=== PATIENT | female | born 1945 | race Two or more races ===

== ENCOUNTER 2022-03-15 14:43 | Inpatient (IN) | payer MEDICARE, OTHER ==
[~2022-03-15] VITALS: Ht 162.6 cm; Wt 66.0 kg
[2022-03-15] MEDS ORDERED: ATOR10 PO (15:28)
[2022-03-15] MEDS ORDERED: METO50 PO (15:29)
[2022-03-15] MEDS ORDERED: FURO40 PO (15:29)
[2022-03-15] MEDS ORDERED: FURO20 PO (19:59)
[2022-03-15] MEDS ORDERED: ALBU90OI INH (20:05)
[2022-03-15] MEDS ORDERED: FLOVENT HFA12 GM INH (20:05)
--- NOTE | 2022-03-15 20:10 | NUR ---
SHIFT SUMMARY- PT ARRIVED ON MEDICAL FLOOR WITH PAPER ADMIT ORDERS AT 1845. ALL ORDERS ENTERED INTO THE COMPUTER, CALLLED DR NORMAN FOR CLARIFICATION ON SOME ORDERS ALL ORDERS PLACED THROUGHT ORDERMANAGEMENT. MEDICATIONS RECONCILED AFTER THE PT DAUGHTER PRODUCED PHOTOS OF SCRIPT LABELS. PT ALERT AND WITH NO S&S OF DISTRESS ON 2L O2 AT THE TIME OF SHIFT CHANGE. PT DAUGHTER STATES THE PT USES A CPAP MACHINE AT NIGHT HABITUALLY. NO ORDERS IN PLACE FOR THE CPAP NIGHT RN AWARE AND WILL CALL NIGHT MD FOR THOSE WELL TO CLARIFY CODE STATUS.
--- NOTE | 2022-03-16 00:50 | NUR ---
CARDIAC:PATIENT WAS ASSISTED TO THE BSC, SEEMED WEAKER THAN RONNY. WAS ALSO AGGITATED WITH THE CPAP AND SCD'S ON. BP WAS 179/105 HR 90, SOB WITH ACTIVITY RR 26, 02 SAT IS 100% ON 3L NC. DR FREEDMAN IS NOTIFIED AND ORDERS FOR HYDRALAZINE 10 MG PRN FOR SBP ABOVE 160. MED WAS NOT GIVEN DUE TO BP WAS 128/65 WHEN RECHECK FOR THRESHER BROOMCORN. WILL CONTINUE TO MONITOR.
[2022-03-16 03:50] LABS: BASOPHILS ABSOLUTE AUTO 0.02 K/mm3 (0.00-0.23); BASOPHILS PERCENT AUTO 0 % (0-2); EOSINOPHILS ABSOLUTE AUTO 0.01 K/mm3 (0.00-0.68); EOSINOPHILS PERCENT AUTO 0 % (0-6); Hematocrit 44.5 % (33.0-51.0); Hemoglobin 13.3 g/dL (11.5-16.0); IMMATURE GRAN ABSOLUTE AUTO 0.07 K/mm3 (0.00-0.10); IMMATURE GRAN PERCENT AUTO 1 % (0-1); LYMPHOCYTES ABSOLUTE AUTO 0.99 K/mm3 (0.84-5.20); LYMPHOCYTES PERCENT AUTO 17 % (21-46); MONOCYTES ABSOLUTE AUTO 0.64 K/mm3 (0.16-1.47); MONOCYTES PERCENT AUTO 11 % (4-13); Mean Corpuscular HGB 31.2 pg (26.0-34.0); Mean Corpuscular HGB Conc 29.9 g/dL (31.5-36.5); Mean Corpuscular Volume 105 fL (80-100); Mean Platelet Volume 10.8 fL (9.1-12.4); NEUTROPHILS ABSOLUTE AUTO 4.25 K/mm3 (1.96-9.15); NEUTROPHILS PERCENT AUTO 71 % (41-73); Platelet Count 185 K/mm3 (150-400); RDW Coefficient Variation 13.3 % (11.7-14.2); RDW Standard Deviation 51.5 fL (35.1-46.3); Red Blood Cell Count 4.26 M/mm3 (3.80-5.20); White Blood Cell Count 5.98 K/mm3 (4.00-11.30)
[2022-03-16 04:21] LABS: Albumin, Blood 3.4 g/dL (3.4-5.0); Albumin/Globulin Ratio 0.9 (0.8-1.8); Bun/Creatinine Ratio 31.3 (12.0-20.0); Calcium, Blood 8.8 mg/dL (8.5-10.1); Creatinine, Blood 0.67 mg/dL (0.40-1.00); Globulin, Blood 3.6 g/dL (2.2-4.0); Potassium, Blood 4.6 mmol/L (3.5-5.5); Thyroid Stimulating Hormone 0.9 uIU/mL (0.360-4.800)
--- NOTE | 2022-03-16 04:43 | NUR ---
SHIFT SUMMARY: PATIENT HAS BEEN SLEEPING WELL THIS SHIFT. DAUGHTER REMAINS AT BEDSIDE. PATIENT REFUSES TO USE AIR CONDITIONING SHEET METAL INSTALLER SERVICES. PATIENT IS ABLE TO SPEAK SOME NIGERIAN BUT COLD ROLLING MACHINE SETTER IS UNABLE TO ASSESS PATIENTS UNDERSTANDING. BP HAS REMAINED STABLE. PATIENT WAS UNABLE TO TOLERATE HOSPITAL CPAP MASK, REFUSAL FOR CPAP WAS OBTAINED. PATIENT RENAINS ON 3L VIA NC AND CONTINUOS PULSE OX. DAUGHTER REFUSES BED ALARM. COLD ROLLING MACHINE SETTER ENCOURAGES DAUGHTER TO RECONSIDER AND GET SOME SLEEP HERSELF.
[2022-03-16 09:48] LABS: PO2 Arterial 88.1 mmHg (80-100)
[2022-03-16 09:49] LABS: pH Blood Arterial 7.11 (7.35-7.45)
[2022-03-16 10:06] LABS: PCO2 Arterial > 105 mmHg (35-45)
--- NOTE | 2022-03-16 10:54 | NUR ---
Upon responding to a Rapid Response, I provide a calming presence for dtr. Ines. She tells me that she is very nervous for her mother and does not understand what is happening. She has her sister in [place] on facetime while we talk. I explain about the transfer to ICU and why it is important. I distract Ines with questions about her life, her lalo and learning about the patient's life. I provide therapeutic listening, gentle counseling specialist, anxiety containment and prayer. Ines responds well and shows signs of increase peace. I will continue to remain available to patient and family.
--- NOTE | 2022-03-16 11:08 | NUR ---
TRANSFER TO ICU PT TRANSFERED TO ICU 15 PCU STATUS AT 1000. PT ARRIVED ON BIPAP 16/ WITH 6L O2 BLEED IN. PT TRANSFER TO ICU BED. PT IS OBTUNDED AND MINIMALLY RESPONSIVE TO NOXIOUS STIMULI. VITAL SIGNS STABLE. IV SALINE LOCKED. PT DAUGHTER AT BEDSIDE. WILL CONTINUE TO MONITOR.
[2022-03-16 12:16] LABS: PCO2 Arterial > 105 mmHg (35-45); PO2 Arterial 72.3 mmHg (80-100)
--- NOTE | 2022-03-16 13:18 | NUR ---
FAMILY PT DAUGHTER AT BEDSIDE WITH PT. CT SCAN ORDERED, THIS RN IN TO INFORM PT DAUGHTER OF PLAN OF CARE. PT DAUGHTER APPEARS ANXIOUS AND IS EXPLAINING THAT SHE DOES NOT BELIEVE A CT SCAN IS NECESSARY. PT REMAINS OBTUNDED WITH PCO2 >105. PT DAUGHTER REFUSES TO USE AN COMPUTER METHODS ANALYST SERVICE PROVIDED. THIS RN EXPLAINED IN GREAT DETAIL PT CONDITION AND PLAN OF CARE WITH NEED FOR CT SCAN DUE TO PT WORSENING RESPIRATORY CONDITION THIS MORNING. GREG ALEXANDER AT BEDSIDE WITNESS TO CONVERSATION REGARDING PT PLAN OF CARE AND PT DAUGHTER REFUSAL OF INTERPERETER SERVICES.
[2022-03-16 16:44] LABS: PO2 Arterial 61.8 mmHg (80-100); pH Blood Arterial 7.22 (7.35-7.45)
[2022-03-16 16:50] LABS: PCO2 Arterial > 105 mmHg (35-45)
--- NOTE | 2022-03-16 17:24 | NUR ---
SHIFT SUMMARY: PT SLEPT ON AND OFF A MAJORITY OF THE DAY. A&OX3. FORGETFUL AT TIMES. PT ON RA SATING ABOVE 95%. HR SINUS RHYTHYM 80-90. HEPARING INFUSING AT 16UNITS/KG/HR. PT HAD NO COMPLAINTS OF CHEST PAIN OR SOB THROUGHOUT THE DAY. PT HAVING BROWM LIQUID STOOL. CONT OF URINE. REPOS IND IN BED. CALL LIGHT IN REACH. WILL CONTINUE TO MONITOR AND REPORT TO LISA GARZA.
--- NOTE | 2022-03-16 18:05 | NUR ---
SHIFT SUMMARY: PT MINIMALLY RESPONSIVE TO NOXIOUS STIMULI. LUNG SOUNDS DIMINISHED THROUGHOUT. PT HAD CT THIS EVENING WHICH WAS NEGATIVE FOR PE. DR STYLES IN THIS EVENING TO SEE PT. ADJUSTED BIPAP SETTINGS TO 22/10 WITH 3L BLEED IN. SATING ABOVE 90%. HR SINUS RHYTHYM 75-85. PT INC OF BOTH URINE AND BOWEL. DAUGHTER WAS AT BEDISDE THROUGHOUT SHIFT AND UPDATED FREQUENTLY OF PT CARE. REPOS Q2. WILL CONTINUE TO MONITOR AND REPORT TO ONCOMING RN.
--- NOTE | 2022-03-16 20:30 | NUR ---
ASSUMED CARE @1900 PATIENT IS ALERT AND ORIENTED AND AT BASELINE ACCORDING TO THE DUAGHTER. SOME DIFFICULTY FOLLOWING COMMANDS, POSSIBLE LANGUAGE BARRIER. TRIED GIVING PATIENT A SIP OF WATER AND SHE HELD IT IN HER MOUTH, HELD PO MEDICATION DUE TO POSSIBLE ASPIRATION RISK. 02 SATS 98% ON BIPAP 22/10, 4L 02. LEFT LS ABSENT, RIGHT LS CLEAR IN UPPER LOBE, DIMISHED IN BASES. HR NSR. BP STABLE TO SLIGHTLY HYPOTENSIVE WHILE SLEEPING WITH SYSTOLICS IN THE 90s. DENIES CP/PRESSURE. BOWEL TONE ACTIVE T/O. PATIENT INCONTINENT OF BLADDER, ATTENDS IN PLACE. PATIENT ABLE TO REPOSITION SELF IN BED. DAUGHTER AT BEDSIDE. CALL LIGHT IN REACH.
[2022-03-17 03:34] LABS: BASOPHILS ABSOLUTE AUTO 0.01 K/mm3 (0.00-0.23); BASOPHILS PERCENT AUTO 0 % (0-2); EOSINOPHILS PERCENT AUTO 0 % (0-6); Hematocrit 41.9 % (33.0-51.0); Hemoglobin 12.5 g/dL (11.5-16.0); IMMATURE GRAN ABSOLUTE AUTO 0.04 K/mm3 (0.00-0.10); IMMATURE GRAN PERCENT AUTO 1 % (0-1); LYMPHOCYTES ABSOLUTE AUTO 0.66 K/mm3 (0.84-5.20); LYMPHOCYTES PERCENT AUTO 10 % (21-46); MONOCYTES ABSOLUTE AUTO 0.71 K/mm3 (0.16-1.47); MONOCYTES PERCENT AUTO 11 % (4-13); Mean Corpuscular HGB 30.9 pg (26.0-34.0); Mean Corpuscular HGB Conc 29.8 g/dL (31.5-36.5); Mean Corpuscular Volume 104 fL (80-100); Mean Platelet Volume 11.1 fL (9.1-12.4); NEUTROPHILS ABSOLUTE AUTO 5.05 K/mm3 (1.96-9.15); NEUTROPHILS PERCENT AUTO 78 % (41-73); Platelet Count 174 K/mm3 (150-400); RDW Standard Deviation 49.3 fL (35.1-46.3); Red Blood Cell Count 4.04 M/mm3 (3.80-5.20); White Blood Cell Count 6.47 K/mm3 (4.00-11.30)
[2022-03-17 04:05] LABS: Albumin, Blood 3.1 g/dL (3.4-5.0); Bilirubin, Total 1.1 mg/dL (0.1-1.0); Bun/Creatinine Ratio 30.6 (12.0-20.0); Calcium, Blood 8.4 mg/dL (8.5-10.1); Creatinine, Blood 0.65 mg/dL (0.40-1.00); Globulin, Blood 3.2 g/dL (2.2-4.0); Magnesium, Blood 1.9 mg/dL (1.6-2.4); Potassium, Blood 3.8 mmol/L (3.5-5.5); Total Protein, Blood 6.3 g/dL (6.4-8.2)
--- NOTE | 2022-03-17 05:22 | NUR ---
SHIFT SUMMARY PATIENT ALERT AND ORIENTED, DAUGHTER STATES SHE IS AT HER BASELINE. FOLLOWS DIRECTIONS BETTER THIS AM, STILL SOME CONFUSION POSSIBLY DUE TO LANGUAGE BARRIER. 02 SATS 88-95% ON BIPAP 22/10, 4-5L 02. PATIENT WORE BIPAP THE ENTIRE SHIFT. ORAL CARE PROVIDED Q4 HOURS AND PRN. HR NSR AND BP STABLE THROUGH THE NIGHT. PATIENT INCONTINENT OF BLADDER, ATTENDS IN PLACE. PATIENT ABLE TO MOVE HERSELF IN BED, ASSISTED WITH REPOSITIONING NEEDED. DAUGHTER REMAINED AT BEDSIDE THIS SHIFT. CALL LIGHT IN REACH
--- NOTE | 2022-03-17 08:05 | NUR ---
DAUGHTER AT BEDSIDE CARING FOR MOTHER, CROW LANGUAGE PHILSHALOM, LANGUAGE BARRIER DIFFICULTIES. PLEASANT TO CARE, BOOST SELINA BED, PATIENT ALERT AND ORIENTED, CALL LIGHT WITH IN REACH, WCTM
--- NOTE | 2022-03-17 08:13 | NUR ---
PATIENT OFF BIPAP, 4L O2 VIA NC, EATING, SATS 100%, DECREASED OXYGEN TO 3 LITER SATS 97%, WCTM
[2022-03-17 09:02] LABS: PCO2 Arterial 95.8 mmHg (35-45); PO2 Arterial 82.6 mmHg (80-100); pH Blood Arterial 7.28 (7.35-7.45)
--- NOTE | 2022-03-17 15:17 | NUR ---
PATIENT HAS EPISODES OF DESATS WITH A GOOD PLETH, DESATS TO 70%, DR STYLES AND RT JESUS AWARE, PATIENT RECOVERS EASILY, BIPAP MASK IS VERY UNCOMFORTABLE FOR THE PATIENT, DAUGHTER AT BEDSIDE, CALL LIGHT WITH IN REACH, [facility]
--- NOTE | 2022-03-17 18:24 | NUR ---
patient alert and oriented today, frogetful at times, language barrier, daughter interprets to and for the patient but is not a legal interpretor. patient was on bipap and nc through the day, co2 was 105 and now is 95, patient encouraged to keep the bipap mask on as much as she can. patient does not have home oxygen only a home cpap. no sob, desats while sleeping to 70% with a good ready. tele nsr, 3l o2 via nc w/a, bipap at 4l bleed in, 26/08. call kelsie tran in reach, daughter at bedside helping with care and interpreting, will relay to pm conrad
--- NOTE | 2022-03-17 19:36 | NUR ---
PT IS ALERT, DAUGHTER IS AT BEDSIDE TO TRANSLATE MOTHER IS [place]ATHAN[place] AND HAS LIMITED KNOWLEGE OF ROMANIAN. DAUGHTER REFUSES WINDOWS TECHNICAL SPECIALIST SERVICES AND CHOSES TO TRANSLATE FOR HER MOTHER. BOTH ARE PLEASENT IN DEMEANOR. PT IS RESTLESS CAUSING BIPAP TO NEED READJUSTMENT FREQUENTLY BUT IS COMPLIANT TO WEAR IT. OXYGEN SAT IS 98% AT THIS TIME. NO S/S OF ACUTE DISTRESS NOTED AT TIME THIS NOTE WRITTEN. INSTRUCTED DAUGHTER/PATIENT TO CALL WITH ANY NEEDS/CONCERNS. ALL VS WNL AT THIS TIME.
[2022-03-18 03:40] LABS: PO2 Arterial 67.1 mmHg (80-100)
[2022-03-18 03:42] LABS: PCO2 Arterial 66 mmHg (35-45); pH Blood Arterial 7.44 (7.35-7.45)
[2022-03-18 05:16] LABS: Bun/Creatinine Ratio 40.1 (12.0-20.0); Calcium, Blood 8.8 mg/dL (8.5-10.1); Creatinine, Blood 0.65 mg/dL (0.40-1.00); Potassium, Blood 3.8 mmol/L (3.5-5.5)
--- NOTE | 2022-03-18 06:13 | NUR ---
SHIFT SUMMERY: PT WAS VERY RESTLESS AND AWAKE MOST OF THE NIGHT. PT AND DAUGHTER REFUSE MICROECONOMICS PROFESSOR SERVICE AND THE DAUGHTER PROVIDES INTERPRETATION. PT HAS WORN BIPAP THROUGHOUT THE NIGHT BUT IT HAS HAD TO BE READJUSTED MANY MANY TIMES DUE TO PT MOVING IT AROUND. EDUCATION ON THE BIPAP MASK, HOW IT WORKS, CO2 RETENTION GIVEN MULTIPLE TIMES TO DAUGHTER AND PATIENT. PATIENT DOES SPEAK SOME SOMALI. PT HAD AN EPISODE OF DESATURATION WHILE SLEEPING BUT RECOVERED WITHOUT INTERVENTION. NO ACUTE DISTRESS NOTED OVERNIGHT.
--- NOTE | 2022-03-18 10:42 | NUR ---
HOME OXYGEN EVALUATION, PATIENT DESATS TO 80% AT REST WITH THE BIPAP ON AT 22/10 WITHOUT OXYGEN BLEED IN. PATIENT DESATS WHEN TRASNFERING FROM BED TO CHAIR WITH 3 LO2 VIA NV AND/OR THE BIPAP AT 22/10 TO 80-86%.
[2022-03-18] MEDS ORDERED: Aspir 8181 MG PO (11:39)
[2022-03-18] MEDS ORDERED: POTCHL20ER PO (11:40)
[2022-03-18] MEDS ORDERED: 1/2 NS 250ml250 ML (11:40)
--- NOTE | 2022-03-18 11:48 | NUR ---
RT IN ROOM WITH PATIENT DOING HOME O2 EVALUATION
== END 2022-03-18 19:25 | disposition home or self-care (01) | DRG 291 ==
LOC: ER 14:43 → ICUW 18:38 → MEDS 18:38 → ICUW 03-16 09:43
PROVIDERS: ADMIT Internal Medicine
PROC: 5A09457 Assistance with Respiratory Ventilation, 24-96 Consecutive Hours, Continuous Positive Airway Pressure (ICD-10-PCS; principal; 2022-03-15)
DX: I11.0 Hypertensive heart disease with heart failure (principal); G93.41 Metabolic encephalopathy; J96.22 Acute and chronic respiratory failure with hypercapnia; J96.21 Acute and chronic respiratory failure with hypoxia; E87.1 Hypo-osmolality and hyponatremia; I50.813 Acute on chronic right heart failure; I27.20 Pulmonary hypertension, unspecified; G47.33 Obstructive sleep apnea (adult) (pediatric); E78.5 Hyperlipidemia, unspecified; Z79.899 Other long term (current) drug therapy; Z90.49 Acquired absence of other specified parts of digestive tract; Z90.89 Acquired absence of other organs
CPT/HCPCS: 36415; 36600; 71045; 71260; 80048; 80053; 82140; 82803; 83735; 84100; 84443; 85025; 93005; 93010; 93306; 94640; 94660; 94664; 94761; 94762; 96374; 99285-25; A9270; J1120; J1650; J1940; Q9967

== ENCOUNTER → 2022-03-15 | Outpatient (CLI) | payer SELFPAY ==
[~2022-03-15] MED LIST: 1/2 NS 250ml250 ML; ALBU90OI INH; ATOR10 PO; Aspir 8181 MG PO; FLOVENT HFA12 GM INH; FURO20 PO; FURO40 PO; METO50 PO; POTCHL20ER PO
[2022-03-15 14:13] LABS: BASOPHILS ABSOLUTE AUTO 0.02 K/mm3 (0.00-0.23); BASOPHILS PERCENT AUTO 0 % (0-2); EOSINOPHILS ABSOLUTE AUTO 0.01 K/mm3 (0.00-0.68); EOSINOPHILS PERCENT AUTO 0 % (0-6); Hemoglobin 13.9 g/dL (11.5-16.0); IMMATURE GRAN ABSOLUTE AUTO 0.02 K/mm3 (0.00-0.10); IMMATURE GRAN PERCENT AUTO 0 % (0-1); LYMPHOCYTES ABSOLUTE AUTO 1.15 K/mm3 (0.84-5.20); LYMPHOCYTES PERCENT AUTO 19 % (21-46); MONOCYTES ABSOLUTE AUTO 0.63 K/mm3 (0.16-1.47); MONOCYTES PERCENT AUTO 11 % (4-13); Mean Corpuscular HGB 31.3 pg (26.0-34.0); Mean Corpuscular HGB Conc 30.9 g/dL (31.5-36.5); Mean Corpuscular Volume 101 fL (80-100); NEUTROPHILS ABSOLUTE AUTO 4.12 K/mm3 (1.96-9.15); NEUTROPHILS PERCENT AUTO 69 % (41-73); Platelet Count 194 K/mm3 (150-400); RDW Coefficient Variation 13.7 % (11.7-14.2); RDW Standard Deviation 51.3 fL (35.1-46.3); Red Blood Cell Count 4.44 M/mm3 (3.80-5.20); White Blood Cell Count 5.95 K/mm3 (4.00-11.30)
[2022-03-15 14:34] LABS: Albumin, Blood 3.6 g/dL (3.4-5.0); Bun/Creatinine Ratio 30.1 (12.0-20.0); Calcium, Blood 8.5 mg/dL (8.5-10.1); Creatinine, Blood 0.93 mg/dL (0.40-1.00); Globulin, Blood 3.6 g/dL (2.2-4.0); Potassium, Blood 4.8 mmol/L (3.5-5.5); Thyroid Stimulating Hormone 2.552 uIU/mL (0.360-4.800); Total Protein, Blood 7.2 g/dL (6.4-8.2)
--- NOTE | 2022-03-18 19:40 | NUR ---
DISCHARGE NOTE: DISCHARGE INSTRUCTIONS AND TEACHING WAS DONE BY DAY SHIFT STAFF. PT AND PT'S DAUGHTER DENIED HAVING FURTHER QUESTIONS. PT HERE STILL ONLY BECAUSE OF DELAY WITH HER TRANSPORTATION HOME. PT'S SON-IN-LAW ARRIVED TO TRANSPORT THE PT VIA PERSONAL CAR. PT TRASPORTED TO [facility] WITH ALL PF HER BELONGINGS. PT ABLE TO MOVE TO CAR WITH VERY SLIGHT ASSISTANCE AND WITHOUT INCIDENT.
== END | disposition home or self-care (01) ==
LOC: LAB SHORT 14:09
PROVIDERS: Physician Assistant
DX: R53.83 Other fatigue (principal); R06.00 Dyspnea, unspecified
CPT/HCPCS: 80053; 83880; 84443; 84484; 85025